=== PATIENT | male | born 1960 | race African-American/Black ===

== ENCOUNTER 2022-11-21 23:09 | Emergency (ER) | payer MEDICAID, OTHER ==
[~2022-11-21] VITALS: Ht 172.7 cm; Wt 76.0 kg
[2022-11-22 04:33] VITALS: BP 135/80
[2022-11-22] MEDS ORDERED: ACET-2708 MT (04:41)
== END 2022-11-22 05:14 | disposition home or self-care (01) ==
LOC: ER 23:09
DX: M54.2 Cervicalgia (principal)
CPT/HCPCS: 71045; 72040; 99284; Z7610